=== PATIENT | male | born 1950 | race Caucasian/White ===

== ENCOUNTER 2021-07-13 16:53 | Emergency (ER) | payer MEDICARE, BC ==
[~2021-07-13] VITALS: Ht 188 cm; Wt 150.0 kg
[2021-07-13 17:01] VITALS: TEMP 97.7
[2021-07-13] MEDS ORDERED: VOLTAREN GEL 1%1 TU TP (17:25)
[2021-07-13 17:45] VITALS: BP 141/84; PULSE 68
== END 2021-07-13 17:45 | disposition home or self-care (01) ==
LOC: COL.ER 16:53
DX: M25.552 Pain in left hip (principal); E66.01 Morbid (severe) obesity due to excess calories; Z68.41 Body mass index [BMI] 40.0-44.9, adult